=== PATIENT | female | born 1965 | race Caucasian/White ===

== ENCOUNTER 2016-05-21 | Outpatient (CLI) | END 2016-05-21 16:49 | disposition critical access hospital (66) | CPT/HCPCS: A0425; A0429 ==

== ENCOUNTER 2016-05-21 17:02 | Emergency (ER) | payer MEDICAID ==
[2016-05-21] MEDS ORDERED: LORazepam 0.5 MG TABLET PO STA (19:07)
[2016-05-21] MEDS ORDERED: NICOTINE 14 MG PATCH TOP STA (19:07)
[2016-05-21] MEDS ORDERED: NICOTINE 14 MG PATCH TOP ONE (19:13)
[2016-05-21] MEDS ORDERED: LORazepam 0.5 MG TABLET ONE (19:13)
== END 2016-05-21 22:50 | disposition home or self-care (01) ==
DX: F43.9 Reaction to severe stress, unspecified (principal); R45.851 Suicidal ideations; R45.850 Homicidal ideations; F32.9 Major depressive disorder, single episode, unspecified; F43.10 Post-traumatic stress disorder, unspecified; F17.200 Nicotine dependence, unspecified, uncomplicated
CPT/HCPCS: 36415; 80053; 80306; 80307; 80320; 80329; 81001; 81025; 83690; 84443; 85025; 99283; 99284; A9270

== ENCOUNTER 2017-08-26 18:46 | Emergency (ER) | payer MEDICAID ==
[2017-08-26 19:37] LABS: BASOPHILS # (AUTO) 0.1 10^3/uL (0.0-0.1); BASOPHILS % (AUTO) 0.9 %; EOSINOPHILS # (AUTO) 0.2 10^3/uL (0.0-0.7); EOSINOPHILS % (AUTO) 1.9 %; HGB - HEMOGLOBIN 14.9 g/dL (12.0-16.0); LYMPHOCYTES # (AUTO) 4.1 10^3/uL (1.5-3.5); LYMPHOCYTES % (AUTO) 46.4 %; MEAN CORPUSCULAR HEMOGLOBIN 28.3 pg (27.0-31.0); MEAN CORPUSCULAR HGB CONC 32.5 g/dL (32.0-36.0); MEAN PLATELET VOLUME 7.1 fL (7.9-10.8); MONOCYTES # (AUTO) 0.6 10^3/uL (0.0-1.0); MONOCYTES % (AUTO) 7.1 %; NEUTROPHILS # (AUTO) 3.8 10^3/uL (1.5-6.6); NEUTROPHILS % (AUTO) 43.7 %; PLT - PLATELET COUNT 404 10^3/uL (130-450); RED BLOOD COUNT 5.27 10^6/uL (4.20-5.40); RED CELL DISTRIBUTION WIDTH 13.5 % (12.0-15.0); WHITE BLOOD COUNT 8.8 x10^3/uL (4.8-10.8)
[2017-08-26 19:52] LABS: ALBUMIN/GLOBULIN RATIO 1.1 (1.0-2.2); BILIRUBIN,TOTAL 0.5 mg/dL (0.2-1.0); CALCIUM 9.1 mg/dL (8.5-10.3); CREATININE 0.7 mg/dL (0.4-1.0); TOTAL PROTEIN 7.5 g/dL (6.7-8.2)
[2017-08-26] MEDS ORDERED: DICYCLOMINE 10 MG CAPSULE PO STA (20:46)
[2017-08-26] MEDS ORDERED: ONDANSETRON ODT 4 MG TABLET TL STA (20:46)
[2017-08-26 20:59] LABS: BILIRUBIN,URINE NEGATIVE (NEGATIVE); GLUCOSE, URINE (UA) NEGATIVE (NEGATIVE); KETONES,URINE (UA) NEGATIVE (NEGATIVE); LEUKOCYTE ESTERASE, URINE NEGATIVE (NEGATIVE); NITRITE,URINE NEGATIVE (NEGATIVE); OCCULT BLOOD,URINE NEGATIVE (NEGATIVE); PROTEIN,URINE NEGATIVE (NEGATIVE); UROBILINOGEN,URINE 0.2 (NORMAL) E.U./dL (NORMAL)
[2017-08-26 21:01] LABS: CLARITY,URINE CLEAR (CLEAR)
[2017-08-26] MEDS ORDERED: ONDANSETRON ODT 4 MG Prepack 2 TL PRN (22:01)
--- NOTE | 2017-08-26 22:04 | ED Physician Documentation ---
History of Present Illness - Stated complaint Stated Complaint: FLU SYMPTOMS - Chief complaint Chief Complaint: Abd Pain - History obtained from History obtained from: Patient - History of Present Illness Timing: Yesterday - Additonal information Additional information: Patient is a 52 year old female who is presenting to the emergency department for not feeling well. patient states that for the last two days she has had some nausea, sweats and generally not feeling well. patient denies any fevers, vomiting, diarrhea, constipation, cough or dysuria. Review of Systems Constitutional: reports: Fever, Chills. denies: Fatigue Eyes: reports: Reviewed and negative Ears: reports: Reviewed and negative Nose: reports: Reviewed and negative Cardiac: denies: Chest pain / pressure, Palpitations Respiratory: denies: Dyspnea, Cough, Wheezing GI: reports: Abdominal Swelling, Nausea. denies: Vomiting, Constipation, Diarrhea : denies: Dysuria, Frequency, Hesitancy Skin: denies: Rash, Lesions Musculoskeletal: denies: Back pain Neurologic: denies: Generalized weakness, Focal weakness Immunocompromised: denies: Immunocompromised PD PAST MEDICAL HISTORY - Past Medical History Cardiovascular: None Respiratory: None Neuro: None Endocrine/Autoimmune: None Psych: Depression, Anxiety, Post traumatic stress disorder - Past Surgical History Past Surgical History: Yes General: Gastric surgery - Present Medications Home Medications: Ambulatory Orders Medication Instructions Recorded Confirmed Ondansetron Odt [Zofran] 4 mg TL Q6H PRN #14 tablet 08/26/17 - Allergies Allergies/Adverse Reactions: Allergies Allergy/AdvReac Type Severity Reaction Status Date / Time pregabalin [From Lyrica] Allergy Nausea Verified 05/21/16 17:20 - Social History Does the pt smoke?: Yes Smoking Status: Current every day smoker Does the pt drink ETOH?: No Does the pt have substance abuse?: No - Immunizations Immunizations are current?: Yes PD ED PE NORMAL - Vitals Vital signs reviewed: Yes - General General: Alert and oriented X 3, No acute distress - HEENT HEENT: Atraumatic - Neck Neck: Supple, no meningeal sign - Cardiac Cardiac: RRR - Respiratory Respiratory: No respiratory distress, Clear bilaterally - Abdomen Abdomen: Soft, Non tender, Non distended - Derm Derm: Normal color, No rash - Extremities Extremities: No deformity - Neuro Neuro: Alert and oriented X 3, No motor deficit, Normal speech Eye Opening: Spontaneous Results - Vitals Vitals: Vital Signs - 24 hr 08/26/17 08/26/17 19:02 22:12 Temperature 36.4 C L 36.7 C Heart Rate 99 76 Respiratory 20 17 Rate Blood Pressure 135/90 H 121/58 L O2 Saturation 100 99 Oxygen O2 Source Room air - Labs Labs: Laboratory Tests 08/26/17 08/26/17 08/26/17 19:25 19:25 20:45 WBC 8.8 RBC 5.27 Hgb 14.9 Hct 45.9 MCV 87.0 MCH 28.3 MCHC 32.5 RDW 13.5 Plt Count 404 MPV 7.1 L Neut # 3.8 Lymph # 4.1 H [place] # 0.6 Eos # 0.2 Baso # 0.1 Absolute Nucleated RBC 0.00 Nucleated RBC % 0.0 Sodium 134 L Potassium 3.8 Chloride 99 L Carbon Dioxide 25 Anion Gap 10.0 BUN 13 Creatinine 0.7 Estimated GFR (MDRD) 88 L Glucose 104 H Calcium 9.1 Total Bilirubin 0.5 AST 21 ALT 26 Alkaline Phosphatase 100 Total Protein 7.5 Albumin 4.0 Globulin 3.5 Albumin/Globulin Ratio 1.1 Lipase 17 L Urine Color YELLOW Urine Clarity CLEAR Urine pH 6.0 Ur Specific [place] 1.025 Urine Protein NEGATIVE Urine Glucose (UA) NEGATIVE Urine Ketones NEGATIVE Urine Occult Blood NEGATIVE Urine Nitrite NEGATIVE Urine Bilirubin NEGATIVE Urine Urobilinogen 0.2 (NORMAL) Ur Leukocyte Esterase NEGATIVE Ur Microscopic Review NOT INDICATED Urine Culture Comments NOT INDICATED Influenza A (Rapid) Influenza B (Rapid) Influenza Types A,B Ag 08/26/17 21:02 WBC RBC Hgb Hct MCV MCH MCHC RDW Plt Count MPV Neut # Lymph # [place] # Eos # Baso # Absolute Nucleated RBC Nucleated RBC % Sodium Potassium Chloride Carbon Dioxide Anion Gap BUN Creatinine Estimated GFR (MDRD) Glucose Calcium Total Bilirubin AST ALT Alkaline Phosphatase Total Protein Albumin Globulin Albumin/Globulin Ratio Lipase Urine Color Urine Clarity Urine pH Ur Specific [place] Urine Protein Urine Glucose (UA) Urine Ketones Urine Occult Blood Urine Nitrite Urine Bilirubin Urine Urobilinogen Ur Leukocyte Esterase Ur Microscopic Review Urine Culture Comments Influenza A (Rapid) Negative Influenza B (Rapid) Negative Influenza Types A,B Ag - PD MEDICAL DECISION MAKING - ED course Complexity details: reviewed old records, reviewed results, re-evaluated patient , considered differential, d/w patient ED course: patient was seen and examined at bedside. Iv access was gained and labs were drawn. patient was treated with a fluid bolus and zofran. patient's diagnostics were within normal limits. patient was feeling better and asking to go home. patient had no episodes of emesis in the emergency department. Patient was stable for discharge with outpatient follow up. Departure - Departure Disposition: , Self Care Clinical Impression: Gastroenteritis Condition: Good Instructions: ED Gastroenteritis Viral Follow-Up: primary,care provider [Other] - Within 3 Days Prescriptions: Ondansetron Odt [Zofran] 4 mg TL Q6H PRN #14 tablet PRN Reason: Nausea / Vomiting Comments: Your diagnostics today were within normal limits. There is no major abnormality on your blood work or urine. It is difficult to say what is causing your symptoms exactly. You should take zofran as needed for nausea and make sure you stay well hydrated. You should return to the emergency department for signs of obstruction (vomiting, constipation, abdominal extension ). Discharge Date/Time: 08/26/17 22:12
[2017-08-26 22:15] VITALS: BP 121/58
== END 2017-08-26 22:12 | disposition home or self-care (01) ==
LOC: ED 18:46
DX: K52.9 Noninfective gastroenteritis and colitis, unspecified (principal); F17.200 Nicotine dependence, unspecified, uncomplicated
CPT/HCPCS: 36415; 80053; 81003; 83690; 85025; 87275; 87276; 99283; A9270; Q0162; 81001; 87086

== ENCOUNTER 2018-07-06 23:33 | Outpatient (CLI) | payer MEDICAID | END 2018-07-06 23:34 | disposition EMS.NT | LOC: EMS 23:33 | PROVIDERS: ATTEND Surgery | DX: Z03.89 Encounter for observation for other suspected diseases and conditions ruled out (principal) ==

== ENCOUNTER 2019-01-02 14:05 | Emergency (ER) | payer MEDICAID ==
[2019-01-02 14:10] VITALS: BP 136/96
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
[2019-01-02] MEDS ORDERED: NAPROXEN 250 MG TABLET PO STA (15:07)
[2019-01-02] MEDS ORDERED: ACETAMINOPHEN 325 MG TABLET PO STA (15:08)
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
== END 2019-01-02 16:51 | disposition left against medical advice (07) ==
LOC: ED 14:05
DX: T76.21XA Adult sexual abuse, suspected, initial encounter (principal); S63.501A Unspecified sprain of right wrist, initial encounter; X50.9XXA Other and unspecified overexertion or strenuous movements or postures, initial encounter; F17.200 Nicotine dependence, unspecified, uncomplicated
CPT/HCPCS: 73030; 99282; 99283; A9270

== ENCOUNTER 2019-11-26 13:07 | Outpatient (CLI) | payer OTHER, MEDICAID ==
[2019-11-26 14:37] LABS: BASOPHILS # (AUTO) 0.1 10^3/uL (0.0-0.1); BASOPHILS % (AUTO) 0.8 %; EOSINOPHILS # (AUTO) 0.2 10^3/uL (0.0-0.7); EOSINOPHILS % (AUTO) 3.3 %; HGB - HEMOGLOBIN 13.3 g/dL (12.0-16.0); LYMPHOCYTES # (AUTO) 3.1 10^3/uL (1.5-3.5); LYMPHOCYTES % (AUTO) 46.3 %; MEAN CORPUSCULAR HEMOGLOBIN 30.9 pg (27.0-31.0); MEAN CORPUSCULAR HGB CONC 32.5 g/dL (32.0-36.0); MEAN CORPUSCULAR VOLUME 95.1 fL (81.0-99.0); MEAN PLATELET VOLUME 10.1 fL (7.9-10.8); MONOCYTES # (AUTO) 0.4 10^3/uL (0.0-1.0); MONOCYTES % (AUTO) 6.6 %; NEUTROPHILS # (AUTO) 2.8 10^3/uL (1.5-6.6); NEUTROPHILS % (AUTO) 42.7 %; PLT - PLATELET COUNT 338 10^3/uL (130-450); RED CELL DISTRIBUTION WIDTH 12.5 % (12.0-15.0); WHITE BLOOD COUNT 6.7 x10^3/uL (4.8-10.8)
[2019-11-26 14:48] LABS: ALBUMIN 4.7 g/dL (3.2-5.5); BILIRUBIN,TOTAL 0.6 mg/dL (0.2-1.0); CALCIUM 9.8 mg/dL (8.5-10.3); CREATININE 0.7 mg/dL (0.4-1.0); TOTAL PROTEIN 7.1 g/dL (6.7-8.2)
== END 2019-11-26 23:59 | disposition home or self-care (01) ==
LOC: LAB.R 13:07
PROVIDERS: ATTEND Registered Nurse
DX: R10.0 Acute abdomen (principal)
CPT/HCPCS: 80053; 85025

== ENCOUNTER 2021-07-19 16:06 | Emergency (ER) | payer MEDICAID ==
[2021-07-19] MEDS ORDERED: ROPIVACAINE 0.5% PF 20 ML AMPULE SUBQ STA (17:08)
--- NOTE | 2021-07-19 17:10 | ED Physician Documentation ---
History of Present Illness - Stated complaint Stated Complaint: L MID FING INJ - Chief complaint Chief Complaint: Ext Problem - History obtained from History obtained from: Patient - History of Present Illness Timing: How many days ago (2-3) Pain level max: 7 Pain level now: 6 - Additonal information Additional information: Patient is a 56-year-old female with left middle finger swelling, redness and now purple discoloration. She states that she believes there was a thorn in the finger. Started 2 to 3 days ago. She states she tried to clean the finger out but it made it worse. No fevers. No chills. Worse with movement, better with rest. Patient is right-handed Review of Systems Constitutional: denies: Fever, Chills GI: denies: Vomiting PD PAST MEDICAL HISTORY - Past Medical History Cardiovascular: None Respiratory: None Endocrine/Autoimmune: None Psych: Depression, Anxiety, Post traumatic stress disorder - Past Surgical History Past Surgical History: Yes General: Gastric surgery - Present Medications Home Medications: Ambulatory Orders Medication Instructions Recorded Confirmed Ondansetron Odt [Zofran] 4 mg TL Q6H PRN #14 tablet 08/26/17 Ondansetron Odt [Zofran] 4 mg TL Q6H PRN #10 tablet 07/19/21 Oxycodone HCl/Acetaminophen 1 - 2 each PO Q6H PRN #14 tablet 07/19/21 [Percocet 5-325 mg Tablet] clindamycin HCL [Cleocin HCl] 300 mg PO Q6H #40 cap 07/19/21 - Allergies Allergies/Adverse Reactions: Allergies Allergy/AdvReac Type Severity Reaction Status Date / Time pregabalin [From Lyrica] Allergy Nausea Verified 07/19/21 16:09 - Social History Does the pt smoke?: Yes Smoking Status: Current every day smoker Does the pt drink ETOH?: No Does the pt have substance abuse?: No - Immunizations Immunizations are current?: Yes PD ED PE NORMAL - Vitals Vital signs reviewed: Yes - General General: Alert and oriented X 3, No acute distress - HEENT HEENT: Moist mucous membranes - Neck Neck: Supple, no meningeal sign - Derm Derm: Warm and dry - Extremities Extremities: Other (L 3rd digit - palmar aspect bruising and swelling with visible purulence. NVI. no tenderness or erythema over the palm) - Neuro Neuro: Alert and oriented X 3 - Psych Psych: Normal mood, Normal affect Results - Vitals Vitals: Vital Signs - 24 hr 07/19/21 07/19/21 16:09 18:21 Temperature 36.5 C Heart Rate 117 H 78 Respiratory 16 18 Rate Blood Pressure 157/89 H 143/91 H O2 Saturation 99 100 Oxygen O2 Source Room air - Labs Labs: Microbiology 07/19/21 17:40 Wound Culture - Preliminary Abscess - Rads (name of study) L 3rd digit xray Radiology: Final report received, EMP read contemporaneously, See rad report (soft tissue swelling.) Procedures - Abscess I&D (location) L 3rd digit Preparation: Chlorhexadine, Alcohol, Other (ropivicaine 0.5%) Incision: Incised with scalpel, Purulent drainage, Culture obtained Other: Pt tolerated well, Dressing applied, Antibiotic prescribed PD MEDICAL DECISION MAKING - ED course Complexity details: reviewed results, re-evaluated patient, considered differential, d/w patient ED course: 56-year-old female with what appears to be a superficial abscess of the left third digit. Just underneath the dermis. A incision was made and the purulent fluid was drained. Patient feels much better. No evidence of toxic tenosynovitis. Appears to be a superficial infection. We will place on antibiotics for home. Placed in a finger splint for comfort. We will follow up closely for repeat wound checks. I am prescribing a short course of short- acting opioid pain medication for this patient. I have reviewed the patients CUTTER OUT and no concerning findings were noted. I have discussed that the opioids are for short term therapy only, and will not be refilled from the ED. patient counseled regarding signs and symptoms for which I believe and urgent re- evaluation would be necessary. Patient with good understanding of and agreement to plan and is comfortable going home at this time This document was made in part using voice recognition software. While efforts are made to proofread this document, sound alike and grammatical errors may occur. Departure - Departure Disposition: 01 Home, Self Care Clinical Impression: Abscess of finger Qualifiers: Laterality: left Qualified Code(s): L02.512 - Cutaneous abscess of left hand Condition: Good Instructions: ED Abscess IandD Follow-Up: your,doctor in 2-3 days [Other] Prescriptions: clindamycin HCL [Cleocin HCl] 300 mg PO Q6H #40 cap Oxycodone HCl/Acetaminophen [Percocet 5-325 mg Tablet] 1 - 2 each PO Q6H PRN #14 tablet PRN Reason: pain Ondansetron Odt [Zofran] 4 mg TL Q6H PRN #10 tablet PRN Reason: Nausea / Vomiting Comments: You had a large abscess on your finger. Please follow-up with your doctor within 2 to 3 days for a wound check. If your doctor is unable to see you, please return here in 2 days for a wound check. Take all antibiotics until gone. Return if you worsen. Your prescriptions were sent to [facility] in [place] I am prescribing a short course of narcotic pain medication for you. These are potentially dangerous and addictive medications that should be used carefully. These medications may constipate you. Take an zlni-cvd-yizriti stool softener (docusate) twice daily with plenty of water while taking these medications. If you go 24 hours without a bowel movement, take [id number] miralax, per package instructions. Do not drink or drive while taking these medications. If you received narcotic or sedating medications while in the emergency department, do not drive for 24 hours. Store this medication in a safe, secure place and out of reach of children. It is a violation of federal law to give or sell this medication to another person or to use in a manner other than prescribed. The ED will not refill narcotic prescriptions, including prescriptions lost or stolen. To dispose of unwanted medications: 1. [facility] at [address] in [place] has a medication drop box. They accept prescription medications (in pill form) Friday through Friday 9:00 a.m. to 5:00 p.m. 2. The [facility] accepts prescription medications (in pill form only) for disposal year round. Call for more information. 3. Contact the [facility] for the next [facility] sponsored prescription drug collection event. , [phone], or [phone]; Discharge Date/Time: 07/19/21 18:22
[2021-07-19] MEDS ORDERED: oxyCODONE 5 MG TABLET PO STA (17:53)
[2021-07-19] MEDS ORDERED: CLINDAMYCIN 150 MG CAPSULE PO STA (17:53)
--- NOTE | 2021-07-19 17:53 | XRAY Report ---
PROCEDURE: Finger(s) LT INDICATIONS: swelling, pain to L midlde finger TECHNIQUE: 3 views of the left middle finger. COMPARISON: FINDINGS: Bones: No fractures or dislocations. No suspicious bony lesions. Soft tissues: No suspicious soft tissue calcifications. Soft tissue swelling of the palmar Gauri aspect of the middle finger. No radiopaque foreign body. IMPRESSION: Soft tissue swelling seen on the palmar side of the left middle finger. No radiopaque foreign body. Reviewed by: Jass Pizarro on 07/19/2021 5:52 PM PST Approved by: Jass Pizarro on 07/19/2021 5:52 PM PST Station ID: [id number]
[2021-07-19 18:22] VITALS: BP 143/91
== END 2021-07-19 18:22 | disposition home or self-care (01) ==
LOC: ED 16:06
DX: L02.512 Cutaneous abscess of left hand (principal)
CPT/HCPCS: 10060; 73140; 87070; 87181; 87205; 99283; 99284; A9270